=== PATIENT | male | born 1940 | race Hispanic/Latino ===

== ENCOUNTER 2019-07-13 12:35 | Inpatient (IN) | payer MEDICARE ==
[~2019-07-13] VITALS: Ht 185.4 cm; Wt 93.1 kg
[2019-07-13 13:07] LABS: BASOPHILS % (AUTO) 0.5 % (0.0-5.0); EOSINOPHILS % (AUTO) 6.5 % (0.0-8.0); HEMATOCRIT 40.7 % (42-54); LYMPHOCYTES % (AUTO) 12.9 % (21.0-51.0); MEAN CORPUSCULAR HEMOGLOBIN 27.8 pg (27.0-33.0); MEAN CORPUSCULAR HGB CONC 31.7 g/dL (32.0-36.0); MEAN CORPUSCULAR VOLUME 87.7 fL (79-99); MONOCYTES % (AUTO) 8.2 % (3.0-13.0); NEUTROPHILS % (AUTO) 71.7 % (40.0-77.0); PLATELET COUNT (AUTO) 296 K/uL (130-400); RED BLOOD CELL COUNT(AUTO) 4.64 MIL/uL (4.50-6.20); RED CELL DISTRIBUTION WIDTH 13.3 % (11.0-15.5); WHITE BLOOD COUNT (AUTO) 8.3 K/uL (4.8-10.8)
[2019-07-13] MEDS ORDERED: GUAIFENESIN-DM 200/20 MG 10 ML PO PRN (13:15)
[2019-07-13] MEDS ORDERED: ACETAMINOPHEN 325 MG TAB PO PRN ×4 (13:15→14:45)
[2019-07-13] MEDS ORDERED: CLONIDINE HCL 0.1 MG TABLET PO PRN (13:15)
[2019-07-13] MEDS ORDERED: ONDANSETRON HCL 4 MG/2 ML VIAL IVP PRN (13:15)
[2019-07-13 13:25] LABS: INR 0.99 (0.85-1.15); PARTIAL THROMBOPLASTIN TIME 26.7 SEC (26.3-35.5); PROTHROMBIN TIME 10.7 SEC (9.6-11.6)
[2019-07-13 13:27] LABS: ALBUMIN 3.2 g/dL (3.5-5.0); BILIRUBIN,DIRECT 0.2 mg/dL (0.0-0.3); BILIRUBIN,TOTAL 0.8 mg/dL (0.2-1.0); TOTAL PROTEIN, SERUM 7.6 g/dL (6.0-8.3)
[2019-07-13 13:29] LABS: POTASSIUM 4.3 mmol/L (3.5-5.1)
[2019-07-13 13:30] LABS: CREATININE 1.3 mg/dL (0.5-1.5)
[2019-07-13] MEDS ORDERED: IOHEXOL 350 MG/ML 100ML INFUS..BTL IV ONE (13:42)
[2019-07-13] MEDS ORDERED: ONDANSETRON HCL 4 MG/2 ML VIAL IV PRN (14:45)
[2019-07-13 15:35] LABS: CHOLESTEROL 193 mg/dL (<200); HDL CHOLESTEROL 52 mg/dL (29-71); LDL DIRECT 111 mg/dL (0-99); TRIGLYCERIDES 224 mg/dL (30-200)
[2019-07-13 15:55] VITALS: BP 142/89
--- NOTE | 2019-07-13 16:00 | NUR ---
RECEIVED FROM ED VIA STRETCHER ACCOMPANIED BY ED STAFF. PT. [id number], RESP.'S EVEN AND UNLABORED. DENIES ANY SOB, DENIES ANY CURRENT PAIN. ORIENTED TO ROOM AND SURROUNDINGS. CALL LIGHT WITHIN REACH, VERBALIZED ABILITY TO USE. BED LOW, SIDE RAILS UP X2.
--- NOTE | 2019-07-13 16:06 | NUR ---
DR. HEREDIA IN ROOM ASSESSING/SPEAKING WITH PT. RE:PLAN OF CARE.
--- NOTE | 2019-07-13 17:04 | NUR ---
DR. Angela RUBIN IN ROOM SPEAKING WITH PT. RE:CTA AND PLAN OF CARE. QUESTIONS ANSWERED BY DR. RUBIN.
--- NOTE | 2019-07-13 19:30 | NUR ---
DR. Joseph FAROOQ PERFORMED RIGHT USG THORACENTESIS WITH USE OF GRAVITY, NOT VACCUTAINERS, IN THE PROCESS OF ONE HOUR AT BEDSIDE. PT. TOLERATED W/O C/O. APPROXIMATELY 2.7L SAMY COLORED FLUID OBTAINED.
[2019-07-13 19:58] VITALS: BP 124/81
[2019-07-13 20:46] LABS: APPEARANCE BODY FLUID CLOUDY (CLEAR); SPECIMENTYPE,BODY FLUID PLEURAL
[2019-07-13 20:47] LABS: BODY FLUID WBC 245 /cu. mm.; COLOR,BODY FLUID ORANGE (LT YELLOW); TOTAL VOLUME,BODY FLUID 102 mL
[2019-07-13 20:48] LABS: BODY FLUID RBC 10230 /cu. mm.
[2019-07-13 21:44] LABS: BF EOSINOPHIL 1 %; BF LYMPHOCYTE 3 %
[2019-07-13 23:55] VITALS: BP 97/74
[2019-07-14 04:03] LABS: BASOPHILS % (AUTO) 0.7 % (0.0-5.0); EOSINOPHILS % (AUTO) 7.6 % (0.0-8.0); HEMATOCRIT 36.2 % (42-54); LYMPHOCYTES % (AUTO) 11.1 % (21.0-51.0); MEAN CORPUSCULAR HGB CONC 31.8 g/dL (32.0-36.0); MEAN CORPUSCULAR VOLUME 88.1 fL (79-99); NEUTROPHILS % (AUTO) 71.3 % (40.0-77.0); PLATELET COUNT (AUTO) 252 K/uL (130-400); RED BLOOD CELL COUNT(AUTO) 4.11 MIL/uL (4.50-6.20); RED CELL DISTRIBUTION WIDTH 13.1 % (11.0-15.5); WHITE BLOOD COUNT (AUTO) 8.9 K/uL (4.8-10.8)
[2019-07-14 04:06] VITALS: BP 107/72
[2019-07-14 04:35] LABS: ALBUMIN 2.5 g/dL (3.5-5.0); BILIRUBIN,TOTAL 0.8 mg/dL (0.2-1.0); CREATININE 1.2 mg/dL (0.5-1.5); POTASSIUM 4.5 mmol/L (3.5-5.1); TOTAL PROTEIN, SERUM 6.4 g/dL (6.0-8.3)
[2019-07-14 07:26] VITALS: BP 92/66
--- NOTE | 2019-07-14 08:50 | NUR ---
DR. Stanley MONTESINOS IN ROOM SPEAKING WITH PT. RE:PLAN OF CARE. PT. MADE DR. Stanley MONTESINOS AWARE RE:ABD. PAIN FOR APPROXIMATELY 2-3 WEEKS; DR. MONTESINOS VERBALIZED UNDERSTANDING.
[2019-07-14] MEDS: LACTULOSE 20 GM/30 ML UDCUP PO PRN (09:06)
[2019-07-14] MEDS: MORPHINE SULFATE 2 MG/ML 1ML SYG IV PRN ×2 (09:06→19:34)
--- NOTE | 2019-07-14 10:05 | NUR ---
RECEIVED CALL FROM RAH ZEPEDA, PT.'S DAUGHTER, QUESTIONS ANSWERED AND UPDATED ON PT.'S STATUS; VERBALIZED UNDERSTANDING.
--- NOTE | 2019-07-14 10:27 | NUR ---
DR. Jose Luis HEREDIA IN ROOM SPEAKING WITH PT. RE:PLAN OF CARE; QUESTIONS ANSWERED BY DR. HEREDIA.
[2019-07-14 11:30] VITALS: BP 113/66
--- NOTE | 2019-07-14 13:02 | NUR ---
REPORT TO Herbie MONTESINOS RN.
--- NOTE | 2019-07-14 13:20 | NUR ---
TRANSFERRED TO ROOM 323 VIA W/C WITH BELONGINGS ACCOMPANIED BY CRISTIAN MORRIS.
--- NOTE | 2019-07-14 13:30 | NUR ---
TRANSFER FROM 2ND FLOOR, REPORT RECIEVE FROM STAFF NURSE JOHN HUSTON. REIVEW CARE AT THE FLOOR, PT STATED THAT HIS BACK HAS BEEN HURTING, AND HAS NOT SLEPT FOR THE PAST DAYS APPLICATION OF A WAFFLE MATTRESS PLACED , UPDATE CARE AND CALL LIGHT IN REACH,,,
--- NOTE | 2019-07-14 13:47 | NUR ---
NOTIFIED PT.'S DAUGHTER, RAH ZEPEDA, RE:TRANSFER TO 3RD FLOOR; VERBALIZED UNDERSTANDING.
--- NOTE | 2019-07-14 14:25 | NUR ---
INITIAL SW spoke to patient's son, Herbert Red, [phone]. Another emergency contact is daughter, Mi Gill, [phone]. No home services. DME: glucometer (no insulin). Patient was able to complete ADL's independently and drove prior to hospitalization as per son. PCP is Dr. Gerry Simon. Pharmacy is [facility] located in [place]. DCP is pending MD recommendations as per son. Addendum: 07/14/19 at 1428 by JOLLY JUDD SS Amended: Links added.
[2019-07-14 16:00] VITALS: BP 130/75
[2019-07-14 19:00] VITALS: BP 115/71
[2019-07-14 23:00] VITALS: BP 96/58
[2019-07-15 03:00] VITALS: BP 105/67
[2019-07-15 05:44] LABS: BASOPHILS % (AUTO) 0.4 % (0.0-5.0); EOSINOPHILS % (AUTO) 7.3 % (0.0-8.0); HEMATOCRIT 34.7 % (42-54); LYMPHOCYTES % (AUTO) 16.1 % (21.0-51.0); MEAN CORPUSCULAR HEMOGLOBIN 27.4 pg (27.0-33.0); MEAN CORPUSCULAR HGB CONC 31.4 g/dL (32.0-36.0); MEAN CORPUSCULAR VOLUME 87.2 fL (79-99); MONOCYTES % (AUTO) 11.4 % (3.0-13.0); NEUTROPHILS % (AUTO) 64.5 % (40.0-77.0); PLATELET COUNT (AUTO) 205 K/uL (130-400); RED BLOOD CELL COUNT(AUTO) 3.98 MIL/uL (4.50-6.20); RED CELL DISTRIBUTION WIDTH 13.2 % (11.0-15.5); WHITE BLOOD COUNT (AUTO) 7.7 K/uL (4.8-10.8)
[2019-07-15 06:04] LABS: B-TYPE NATRIURETIC PEPTIDE 43 pg/mL (0-100)
[2019-07-15 06:10] LABS: ALBUMIN 2.2 g/dL (3.5-5.0); CREATININE 1.3 mg/dL (0.5-1.5); POTASSIUM 5.1 mmol/L (3.5-5.1)
[2019-07-15 07:30] VITALS: BP 112/63
--- NOTE | 2019-07-15 09:07 | NUR ---
DR. RUBIN WAS CALLED REGARDING AFP. RESULTS OF 49.[address] SCAN GUIDED FOR LIVER BX , [employer]ENT FROM [facility] . CALLED ,
[2019-07-15 11:00] VITALS: BP 123/59
--- NOTE | 2019-07-15 12:21 | NUR ---
PROCEDURE PATIENT SCHEDULED FOR CT GD LIVER MASS BX. IMAGES REVIEWED BY DR Akbar MEZA AND DR Chelsi COOPER. PATIENT NOT A CANDIDATE FOR BIOPSY. THERE IS A HIGH RISK FOR PNEUMOTHORAX AND CHEST TUBE PLACEMENT FROM BIOPSY. PROCEDURE CANCELED AND Josseline MONTESINOS RN NOTIFIED OF PROCEDURE OUTCOME.
--- NOTE | 2019-07-15 13:00 | NUR ---
DR. RUBIN HERE , AND UDATE OF CT SCAN LIVER BX . REPORT FROM [employer] SUPPORT SPECIALIST , PER DR. PÉREZ AND DR COOPER . . PT IS A HIGH RISK FOR PROCEDURE. AND CANCEL . DR DE LEON EXPLAIN TO PT OF DECISION. . RESUME DIET .
--- NOTE | 2019-07-15 13:10 | NUR ---
CLEAR FROM MY STANDPOINT FOR DISCHARGE , APPT FOR 1 OR 2 WEEKS
--- NOTE | 2019-07-15 14:30 | NUR ---
DAUGHTER , RAH CALLED AND UPDATE OF HER FATHER , CARE, REGARDING DR. RUBIN SPOKE WITH HER FATHER THAT THE CT GUIDED AND LIVER BX WAS CANCEL DUE TO PT IS NOT A CANDIDATE FOR BIOPSY AND THERE IS A HIGH RISK FOR PNEUMOTHORAX , DAUGHTER , ASKING WHY IS HE A HIGH RISK , AND WHY DID THEY NOT SEE THIS BEFORE , AND MAKING HIM NOT EAT ALL DAY LONG, ASK FOR DR RUBIN NUMBER ., ASK HER TO CALL HIS OFFICE , SO SHE COULD SPEAK TO HIM ,REGARDING MORE INFORMATION , ASK FOR SOMEONE TO COMPLAINT REGARDING HER FATHER CARE, OFFER PATIENT ADVOCATE NO.
[2019-07-15] MEDS: MORPHINE SULFATE 2 MG/ML 1ML SYG IV PRN ×2 (15:35→22:08)
--- NOTE | 2019-07-15 15:38 | NUR ---
PT C/O OF LOWER ABD PAIN, PAIN SCORE OF 7, GAVE THE MORPHINE ,2 MG IV SLOWLY CALL LIGHT INREACH,
[2019-07-15 16:09] VITALS: BP 109/75
--- NOTE | 2019-07-15 17:00 | NUR ---
ASK PT AFTER THE 1 HOUR OF PAIN MEDICATION GIVEN. STATED THAT IT REALLY HELP HIM GREATLY REVIEW CALL LIGHT IN REACH .
[2019-07-15 19:40] VITALS: BP 118/76
[2019-07-15] MEDS: LACTULOSE 20 GM/30 ML UDCUP PO PRN (19:51)
[2019-07-15 23:28] VITALS: BP 124/69
[2019-07-16 03:40] VITALS: BP 126/72
[2019-07-16 07:30] VITALS: BP 118/64
[2019-07-16 11:00] VITALS: BP 116/70
[2019-07-16 16:00] VITALS: BP 126/74
--- NOTE | 2019-07-16 16:00 | NUR ---
ASK PT IF HE HAD HOME MEDICATIONS THAT HE TAKES AT HOME, .STATED THAT HE DID , BUT WAS NOT ABLE TO GET HIS MEDICATION , DUE TO THE STRICT DRIVING . . WILL DIRECT HIS MEDICATIONS WITH HIS PRIVATE DR. DR. HEREDIA, REGARDING MEDICATIONS . PT WILL FOLLOW WITH PRIVATE DOCTOR . RENATO ELLIS IN [place]. . FOR PAIN MEDICATION .
--- NOTE | 2019-07-16 17:00 | NUR ---
DR. HEREDIA HERE AND SPOKE WITH PT .REGARDING PLAN OF DISCHARGE , PT ASKING QUESTIONS AND CONCERNS .REGARDING PAIN ,APPT, AND FOLLOW UP CARE ,AND RESULTS OF HIS THORACENTSIS PROCEDURE ,DR RUBIN WAS ALSO HERE AND SPOKE TO PT REGARDING APPT TO FOLLOWUP WITH HIS CARE, AFTER DISCHARGE PT IS TO GO ALSO WITH HIS PRIVATE DRJose E FOR FOLLOWUP .CARE, APPT . WERE SET UP TO OFFICES THAT WERE OPEN WILL REVIEW THEM WITH THE DISCHARGE SUMMARY.. DENIES ANY PAIN. NOTED NO SHORTNESS OF BREATH CALL LIGHT IN REACH.
--- NOTE | 2019-07-16 17:30 | NUR ---
DISCHARGE SUMMARY WAS REVIEW,WITH . PT REGARDING FOLLOWUP APPT , AND CONT ,CARE. PT WAS ABLE TO FOCUS WITH HIS DISCHARGE EDUARDO. SL TO HIS LFA,WAS DC , NOTED NO HEMATOMA OR REDNESS A DRSG APPLICATION ON .
== END 2019-07-16 17:30 | disposition home or self-care (01) | DRG 187 ==
LOC: EDH 12:35 → EDHIP 12:36 → 2AH 15:55 → 3DH 07-14 13:42
PROVIDERS: ADMIT Internal Medicine; ATTEND Internal Medicine
PROC: 0W993ZZ Drainage of Right Pleural Cavity, Percutaneous Approach (ICD-10-PCS; principal; 2019-07-13)
DX: J90 Pleural effusion, not elsewhere classified (principal); J98.11 Atelectasis; I71.4 Abdominal aortic aneurysm, without rupture; E78.5 Hyperlipidemia, unspecified; N18.9 Chronic kidney disease, unspecified; R16.0 Hepatomegaly, not elsewhere classified; I51.3 Intracardiac thrombosis, not elsewhere classified; D64.9 Anemia, unspecified; R91.1 Solitary pulmonary nodule; Z85.46 Personal history of malignant neoplasm of prostate; Z92.3 Personal history of irradiation; Z98.42 Cataract extraction status, left eye; Z98.41 Cataract extraction status, right eye; Z87.891 Personal history of nicotine dependence
CPT/HCPCS: 36415; 71045; 71275; 74174; 80048; 80053; 80061; 80076; 82040; 82105; 82550; 82945; 83615; 83880; 83986; 84157; 84484; 85025; 85610; 85730; 86850; 86900; 86901; 87071; 87116; 87205; 87206; 88112; 88305; 89051; 93005; 93306; 93356; A4344; C1729; G0378; Q9967